=== PATIENT | female | born 1950 | race Caucasian/White ===

== ENCOUNTER 2018-04-23 06:43 | Day surgery (SDC) | payer MEDICARE, BC ==
--- NOTE | 2018-04-23 06:08 | History and Physical Report ---
DATE: 04/22/2018. CHIEF COMPLAINT AND HISTORY OF CHIEF COMPLAINT: This patient presents with a history of an intractable lumbar radiculopathy. Due to the failure of therapy, a spinal cord stimulator trial was conducted on 03/30/2018 with 75 to 85 percent pain control. Due to the failure of all therapies and the success of the trial, she presents today for implantation of a permanent system. PAST MEDICAL HISTORY: Hypertension, degenerative arthritis. PAST SURGICAL HISTORY: Colon resection, hysterectomy. MEDICATIONS ON ADMISSION: To be provided. ALLERGIES: Codeine, Bactrim, morphine. SOCIAL HISTORY: Caffeine and smoking. FAMILY HISTORY: Hypertension, cancer. REVIEW OF SYSTEMS: The patient is appropriate and in no acute distress. The remainder of the systems review is noncontributory. PHYSICAL EXAMINATION: General: Height and weight unavailable. Vital Signs: Not available. HEENT: Within normal limits. Lungs: Clear. Heart: Regular rate and rhythm. Abdomen: Nontender. Musculoskeletal: Examination of the musculoskeletal system shows diffuse tenderness throughout the lumbar spine. Range of motion causes pain into both legs. There currently are no motor or sensory abnormalities in the legs. Ambulation: No assistive device utilized. Neurologic: Cranial nerves are intact. IMPRESSION: LUMBAR RADICULOPATHY, ICD-10 CODE M54.16 AND M54.17. PLAN: The patient is here for implantation of a permanent spinal cord stimulator after a successful trial and the failure of all other therapies. The procedure will be considered outpatient, although an overnight stay will be evaluated. The potential risks and side effects have all been reviewed and discussed. JOB NUMBER: [id number] cc: Luis Angel Goodman M.D. MTDNadeem
[~2018-04-23 06:43] MED LIST: ACETAMINOPHEN 1,000 MG/100 ML BTL IV ONE; FAMOTIDINE 20MG TABLET PO ONE; MECLIZINE 25 MG TABLET PO ONE; METOCLOPRAMIDE 10 MG TABLET PO ONE
[2018-04-23] MEDS ORDERED: CEFAZOLIN 2 Gram 2 GM/50 ML BAG IVPB ONE (06:44)
--- NOTE | 2018-04-23 13:34 | Operative Note ---
DATE: April 23, 2018. PREOPERATIVE DIAGNOSIS: INTRACTABLE LUMBAR RADICULOPATHY, ICD-10 CODE M54.16 AND M54.17. PROCEDURE: The patient was positioned for spinal cord stimulator implant after a successful trial and the failure of therapy. While the patient was positioning herself on the table in the room, she complained of a pop and snap in the left side of her chest wall. From that point forward, she could not lie flat. The pillows had to be repositioned to get pressure off the site. Eventually all of the pillows were removed and she was simply lying flat on the table, and indicated she could not lie flat. She assumed a more lateral [place] position because of the chest wall pain. At that point, we tried to work through the variables and work through the options of positioning her and following through with the procedure. However, I concluded that she was not going to be able to lie flat, and even with some sedation it may only continue to be a problem. We decided at that point to cancel the procedure. INDICATIONS: This patient presents with a history of intractable lumbar radiculopathy. A successful spinal cord stimulator trial was conducted with 75 to 85 percent pain control. Due to the failure of all other therapies, she was felt to be a good candidate for stimulation. DESCRIPTION OF PROCEDURE: Intravenous line was placed, and vital signs were monitored. She was taken into the room. As stated, while she was positioning herself on the table, she indicated she felt a snap or a pop in the left side of her chest wall toward the anterior angle. From that point forward, she could not lie flat. She could not be positioned. The pillows which were required to maintain a certain flexion of the spine to allow adequate access for placement of the stimulators could not be placed. She continued to have pain, and her own words were, "I cannot do this." At that point, we cancelled the procedure and took her out of the room. The surgical setup had already been completed. Two spinal cord stimulators had already been placed onto the field, all of the appropriate instrumentation and a complete surgical prep setup was in the room during this process. In the recovery room, she was monitored until stable. No sedation was given. She will be sent for a chest x-ray and we will evaluate for a possible rib study. She will be discharged and then evaluated on an outpatient basis. DISCHARGE INSTRUCTIONS: 1. She should see her primary physician, Dr. Luis Angel Goodman, for followup. 2. Based upon the x-ray results, we will see the patient, discuss the results, and discuss some options with respect to treatment for the chest wall pain. 3. We can revisit the implant procedure once she is stable and this current pain pattern has resolved. cc: Luis Angel Goodman M.D. [facility]PITALNadeem
--- NOTE | 2018-04-24 15:57 | RADIOLOGY REPORT ---
DATE: 04/23/2018 at 9:15 a.m. EXAM: LEFT RIBS WITH AP CHEST. HISTORY: SUDDEN LEFT LOWER RIB PAIN AFTER BEING MOVED IN SURGERY. TECHNIQUE: Portable AP and oblique views of the left ribs obtained in PACU. COMPARISON: None. ENCOUNTER: Initial. FINDINGS: Study is somewhat limited by portable technique. As visualized, no definite left rib fracture identified. On the chest x-ray, no definite pleural effusion or pneumothorax evident. Calcification and mild torsion of the aorta. Probable chronic rotator cuff tear of the right shoulder. IMPRESSION: 1. NO DEFINITE LEFT RIB FRACTURE OR PNEUMOTHORAX IDENTIFIED. 2. PROBABLE CHRONIC ROTATOR CUFF TEAR OF THE RIGHT SHOULDER. JOB NUMBER: [id number] MTDD
== END 2018-04-23 09:45 | disposition home or self-care (01) ==
LOC: SUR 06:43
PROVIDERS: ATTEND Pain Medicine Interventional Pain Medicine
DX: M54.16 Radiculopathy, lumbar region (principal); M54.17 Radiculopathy, lumbosacral region; I10 Essential (primary) hypertension; E78.00 Pure hypercholesterolemia, unspecified; E11.9 Type 2 diabetes mellitus without complications
CPT/HCPCS: 63650; 01936; 71101; J0690; C1883